=== PATIENT | female | born 1970 | race Caucasian/White ===

== ENCOUNTER → 2017-06-24 | Day surgery (SDC) | payer OTHER ==
--- NOTE | 2017-06-25 13:40 | PATH ---
Cytology Non-Gynecological Report Patient Name: JAH MENJIVAR [facility]. Rec. #: [id number] /Age/Gender: 1970 (Age: 46) / F Account: [id number] Location: RADIOLOGY Taken: 06/24/2017 Received: 06/24/2017 Reported: 06/25/2017 Physicians: Brad Montana M.D. Specimen(s) Received RIGHT THYROID FNA Clinical History Right thyroid nodule, 1.3 x 1.5 x 0.8 cm Final Diagnosis THYROID GLAND, RIGHT LOBE, US GUIDED FINE NEEDLE SPECIAL BIOPSY: SATISFACTORY FOR EVALUATION DUE TO PRESENCE OF COLLOID. NO MALIGNANT CELLS IDENTIFIED. 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 Comment: The smears and the cell block show clusters of bland appearing follicular epithelial cells, some with Hurthle cell (oncocytic) change. Abundant colloid is present Electronically Signed Theron Norman M.D. Gross Description Received are four air dried smears, four smears in 95% alcohol, and 20 cc of bloody appearing fluid in formalin. Four diff-quik stained slides, four Pap stained slides and one cell block are made.
== END | disposition home or self-care (01) ==
LOC: JRADIR 09:17
PROVIDERS: ATTEND Otolaryngology Facial Plastic Surgery
PROC: 0G9H3ZX Drainage of Right Thyroid Gland Lobe, Percutaneous Approach, Diagnostic (ICD-10-PCS; principal; 2017-06-24)
PROC: BG44ZZZ Ultrasonography of Thyroid Gland (ICD-10-PCS; 2017-06-24)
DX: E04.1 Nontoxic single thyroid nodule (principal)
CPT/HCPCS: 10022; 76942; 88173; 88305-TC